=== PATIENT | male | born 1955 | race Caucasian/White ===

== ENCOUNTER 2018-01-14 13:32 | Emergency (ER) | payer OTHER ==
[2018-01-14] MEDS: ALBUTEROL 0.083% (NEB) 2.5 MG/3 ML AMP HHN (14:25)
[2018-01-14] MEDS: IPRATROPIUM (NEB) 0.5 MG/2.5 ML AMP HHN (14:25)
[2018-01-14] MEDS: DEXAMETHASONE 10 MG/ML 1 ML INJ IM (14:38)
== END 2018-01-14 16:00 | disposition home or self-care (01) ==
LOC: FTE 13:32
DX: R06.2 Wheezing (principal); I10 Essential (primary) hypertension; E11.9 Type 2 diabetes mellitus without complications; Z79.4 Long term (current) use of insulin
CPT/HCPCS: 87070; 94664; 96372; 99284-25

== ENCOUNTER 2018-01-25 16:09 | Emergency (ER) | payer OTHER ==
[2018-01-25] MEDS: ALBUTEROL 0.083% (NEB) 2.5 MG/3 ML AMP HHN (16:54)
[2018-01-25] MEDS: IPRATROPIUM (NEB) 0.5 MG/2.5 ML AMP HHN (16:54)
[2018-01-25 18:32] LABS: ADD MAN DIFF? NO
[2018-01-25 18:34] LABS: BASOPHILS % 0.3 % (0.0-2.0); EOSINOPHILS # 0.3 10^3/ul (0.0-0.5); EOSINOPHILS % 2.1 % (0.0-7.0); HEMATOCRIT 42.6 % (42.0-52.0); HEMOGLOBIN 14.6 g/dl (14.0-18.0); LYMPHOCYTES # 4.1 10^3/ul (0.8-2.9); LYMPHOCYTES % 30.5 % (15.0-51.0); MEAN CORPUSCULAR HEMOGLOBIN 29.7 pg (29.0-33.0); MEAN CORPUSCULAR HGB CONC 34.3 g/dl (32.0-37.0); MEAN CORPUSCULAR VOLUME 86.8 fl (82.0-101.0); MEAN PLATELET VOLUME 11.8 fl (7.4-10.4); MONOCYTE # 0.9 10^3/ul (0.3-0.9); MONOCYTES % 6.7 % (0.0-11.0); NEUTROPHILS % 59.5 % (39.0-77.0); PLATELET COUNT 151 10^3/UL (140-415); RED BLOOD COUNT 4.91 10^6/ul (4.70-6.10); RED CELL DISTRIBUTION WIDTH 13.1 % (11.5-14.5)
[2018-01-25 18:34] LABS: WHITE BLOOD COUNT 13.5 10^3/ul (4.8-10.8)
[2018-01-25 18:37] LABS: ADD UMIC YES; UR ASCORBIC ACID NEGATIVE (NEGATIVE); UR BILIRUBIN (Dip) NEGATIVE (NEGATIVE); UR BLOOD (Dip) NEGATIVE (NEGATIVE); UR CLARITY CLEAR (CLEAR); UR COLOR YELLOW (YELLOW); UR GLUCOSE (Dip) 3+ mg/dL (NEGATIVE); UR KETONES (Dip) NEGATIVE (NEGATIVE); UR LEUKOCYTE ESTERASE (Dip) NEGATIVE Leu/ul (NEGATIVE); UR NITRITE (Dip) NEGATIVE (NEGATIVE); UR RBC 1 /HPF (0-5); UR SPECIFIC GRAVITY (Dip) 1.013 (1.003-1.030); UR TOTAL PROTEIN (Dip) 1+ mg/dl (NEGATIVE); UR UROBILINOGEN (Dip) NEGATIVE (NEGATIVE); UR WBC 0 /HPF (0-5)
[2018-01-25 18:54] LABS: ALANINE AMINOTRANSFERASE 48 IU/L (13-69); ALBUMIN 4.4 g/dl (3.3-4.9); ALBUMIN/GLOBULIN RATIO 1.33; ALKALINE PHOSPHATASE 93 IU/L (42-121); ANION GAP 17 (8-16); ASPARTATE AMINO TRANSFERASE 22 IU/L (15-46); BILIRUBIN,INDIRECT 0.1 mg/dl (0-1.1); BILIRUBIN,TOTAL 0.1 mg/dl (0.2-1.3); BLOOD UREA NITROGEN 43 mg/dl (7-20); CALCIUM 9.9 mg/dl (8.4-10.2); CARBON DIOXIDE 25 mmol/L (21-31); CHLORIDE 104 mmol/L (97-110); CREATININE 1.06 mg/dl (0.61-1.24); GLUCOSE 175 mg/dl (70-220); LIPASE 247 U/L (23-300); POTASSIUM 3.9 mmol/L (3.5-5.1); SODIUM 142 mmol/L (135-144); TOTAL PROTEIN 7.7 g/dl (6.1-8.1)
[2018-01-25 19:10] LABS: TROPONIN-I < 0.012 ng/ml (0.000-0.120)
[2018-01-25] MEDS: IOHEXOL 100 ML (20:22)
[2018-01-25] MEDS: SOD CHLORIDE 0.9% 100 ML (20:22)
== END 2018-01-25 20:53 | disposition home or self-care (01) ==
LOC: FTE 16:09
DX: R05 Cough (principal); E11.9 Type 2 diabetes mellitus without complications; I10 Essential (primary) hypertension; Z79.4 Long term (current) use of insulin; Z79.82 Long term (current) use of aspirin
CPT/HCPCS: 36415; 71275; 80053; 81001; 83690; 84484; 85025; 94664; 99285-25

== ENCOUNTER 2019-04-06 06:26 | Day surgery (SDC) | payer OTHER ==
[2019-04-06] MEDS: SOD CHLORIDE 0.9% 1,000 ML IV (08:26)
[2019-04-06] MEDS: CYCLOPENTOLATE/PHENYLEPH 2 ML OPH OPER (08:27)
[2019-04-06] MEDS: TROPICAMIDE 1% 15 ML OPH OPER (08:27)
[2019-04-06] MEDS: MOXIFLOXACIN 0.5% 3 ML OPH OPER (08:27)
[2019-04-06] MEDS: DICLOFENAC 0.1% 2.5 ML OPH OPER (08:27)
[2019-04-06] MEDS ORDERED: ACCU-CHEK XX (08:30)
[2019-04-06] MEDS: INSULIN ASPART [NOVOLOG] 3 ML PEN SC (08:32)
[2019-04-06] MEDS ORDERED: FENTAnyl 50 MCG/ML VIAL (09:58)
[2019-04-06] MEDS ORDERED: PROPOFOL 200 MG INJ (10:00)
[2019-04-06] MEDS ORDERED: LIDOCAINE 2% (SDV) 5 ML INJ (10:00)
[2019-04-06] MEDS: CEFAZOLIN 1 GM INJ (10:04)
[2019-04-06] MEDS: CARBACHOL 0.01% 1.5 ML OPH INJ (10:04)
[2019-04-06] MEDS: EPINEPHrine 1 MG INJ (10:04)
[2019-04-06] MEDS: DEXAMETHASONE 4 MG/ML 1 ML INJ (10:04)
[2019-04-06] MEDS: LIDOCAINE 4% (MPF) 5 ML INJ (10:06)
[2019-04-06] MEDS: NA HYALURONATE/CHONDROITIN 0.5 ML SYG (10:06)
[2019-04-06] MEDS: TETRACAINE 0.5% 4 ML OPH (10:06)
[2019-04-06] MEDS: GENTAMICIN 80 MG INJ (10:06)
[2019-04-06] MEDS ORDERED: hydrALAzine 20 MG INJ (10:11)
== END 2019-04-06 11:40 | disposition home or self-care (01) ==
LOC: SDS 06:26
DX: H25.12 Age-related nuclear cataract, left eye (principal); E11.9 Type 2 diabetes mellitus without complications; I10 Essential (primary) hypertension; Z79.4 Long term (current) use of insulin
CPT/HCPCS: 66984; 82962